=== PATIENT | female | born 1985 | race American Indian/Alaskan Native ===

== ENCOUNTER 2019-05-20 00:39 | Outpatient (CLI) | payer OTHER | END 2019-05-20 17:23 | disposition home or self-care (01) | LOC: PRENATAL 00:39 → OBS/DEL 00:39 | DX: O76 Abnormality in fetal heart rate and rhythm complicating labor and delivery (principal); Z34.83 Encounter for supervision of other normal pregnancy, third trimester ==

== ENCOUNTER 2019-05-25 01:46 | Inpatient (IN) | payer OTHER ==
[~2019-05-25] VITALS: Ht 152.4 cm; Wt 64.9 kg
== END 2019-05-28 13:44 | disposition home or self-care (01) | DRG 807 ==
LOC: LDR 01:46 → OB/GYN 01:46
PROVIDERS: ADMIT Obstetrics & Gynecology
PROC: 10E0XZZ Delivery of Products of Conception, External Approach (ICD-10-PCS; principal; 2019-05-25)
PROC: 3E033VJ Introduction of Other Hormone into Peripheral Vein, Percutaneous Approach (ICD-10-PCS; 2019-05-25)
PROC: 4A1HXCZ Monitoring of Products of Conception, Cardiac Rate, External Approach (ICD-10-PCS; 2019-05-25)
DX: O80 Encounter for full-term uncomplicated delivery (principal); Z37.0 Single live birth; Z3A.38 38 weeks gestation of pregnancy